=== PATIENT | male | born 1950 | race Caucasian/White ===

== ENCOUNTER → 2017-08-31 | Outpatient (CLI) | payer MEDICARE, OTHER ==
[~2017-08-31] VITALS: Ht 175.3 cm; Wt 127.3 kg
[~2017-08-31] MED LIST: PROPAFENONE HC225 M1 PO
[2017-08-31 13:28] VITALS: BP 159/106
== END ==
LOC: AMSURD 13:19
DX: I48.91 Unspecified atrial fibrillation (principal)

== ENCOUNTER → 2017-09-21 | Outpatient (CLI) | payer MEDICARE, OTHER ==
[~2017-09-21] VITALS: Ht 175.3 cm; Wt 127.3 kg
[~2017-09-21] MED LIST changes: +ELIQUIS5 MG PO; +TOPROL XL 25MG25 MG PO
[2017-09-21 14:59] VITALS: BP 140/102
== END ==
LOC: AMSURD 14:32
DX: I48.91 Unspecified atrial fibrillation (principal)

== ENCOUNTER → 2017-11-23 | Outpatient (CLI) | payer MEDICARE, OTHER ==
[~2017-11-23] VITALS: Ht 172.7 cm; Wt 127.3 kg
[2017-11-23 10:24] VITALS: BP 183/98
== END ==
LOC: AMSURD 10:04
DX: I48.91 Unspecified atrial fibrillation (principal)

== ENCOUNTER → 2018-12-04 | Outpatient (CLI) | payer MEDICARE, OTHER ==
[2017-11-23 10:24] VITALS: BP 183/98
[2018-12-04 15:18] LABS: HEMATOCRIT 43.5 % (42.0-52.0); HEMOGLOBIN 14.6 g/dL (13.5-18.0); MEAN PLATELET VOLUME 9.8 fl (7.4-10.4); RED BLOOD COUNT 5.3 M/mm3 (4.20-5.60); RED CELL DISTRIBUTION WIDTH 12.9 % (11.5-14.5); WHITE BLOOD COUNT 5.7 K/mm3 (4.8-10.8)
[2018-12-04 15:30] LABS: ALBUMIN 3.9 g/dL (3.5-5.0); CALCIUM 8.7 mg/dL (8.4-10.2); TOTAL BILIRUBIN 0.5 mg/dL (0.2-1.3)
[2018-12-04 15:46] LABS: PH-URINE 5.5 (5.0 - 8.0); URINE APPEARANCE CLEAR; URINE COLOR YELLOW
[2018-12-04 15:47] LABS: URINE BILIRUBIN NEGATIVE (NEGATIVE); URINE BLOOD NEGATIVE (NEGATIVE); URINE GLUCOSE NEGATIVE (NEGATIVE); URINE KETONE NEGATIVE (NEGATIVE); URINE LEUKOCYTE ESTERASE NEGATIVE (NEGATIVE); URINE NITRATE NEGATIVE (NEGATIVE); URINE PROTEIN(semi-quant) NEGATIVE (NEGATIVE); URINE UROBILINOGEN NORMAL (NORMAL); URINE WBC 0-1 /hpf (0-3)
== END ==
LOC: LAB 14:45
PROVIDERS: Physician Assistant
DX: L93.0 Discoid lupus erythematosus (principal)

== ENCOUNTER → 2018-12-05 | Outpatient (CLI) | payer MEDICARE, OTHER ==
[2017-11-23 10:24] VITALS: BP 183/98
== END ==
LOC: LAB 11:49
DX: L93.0 Discoid lupus erythematosus (principal)

== ENCOUNTER → 2018-12-30 | Outpatient (CLI) | payer MEDICARE, OTHER ==
[2017-11-23 10:24] VITALS: BP 183/98
== END ==
LOC: RAD 09:49
DX: M79.89 Other specified soft tissue disorders (principal)

== ENCOUNTER → 2020-01-27 | Outpatient (CLI) | payer MEDICARE, OTHER ==
[2017-11-23 10:24] VITALS: BP 183/98
[2020-01-27 13:34] LABS: ALBUMIN 4.1 g/dL (3.4-4.8)
[2020-01-27 13:35] LABS: CALCIUM 9.1 mg/dL (8.3-10.5)
[2020-01-27 13:36] LABS: TOTAL PROTEIN 7.1 g/dL (6.2-8.1)
[2020-01-27 13:38] LABS: TOTAL BILIRUBIN 0.5 mg/dL (0.2-1.2)
[2020-01-27 14:17] LABS: EOS # 0.1 (0.04-0.40); EOS % 0.7 % (0.0-4.0); HEMATOCRIT 45.6 % (42.0-52.0); LYMPH# 1.3 (1.50-4.00); MEAN CELL VOLUME 82 fl (78-100); MEAN CORPUSCULAR HEMOGLOBIN 27 pg (27-31); MEAN CORPUSCULAR HGB CONC 33 g/dL (33-37); MEAN PLATELET VOLUME 9.8 fl (7.4-10.4); MONO # 0.6 (0.20-0.80); NEU # 6.7 (1.40-6.50); PLATELET COUNT 233 K/mm3 (130-400); RED BLOOD COUNT 5.55 M/mm3 (4.20-5.60); RED CELL DISTRIBUTION WIDTH 13.1 % (11.5-14.5); WHITE BLOOD COUNT 8.6 K/mm3 (4.8-10.8)
== END ==
LOC: LAB 13:11
PROVIDERS: Physician Assistant
DX: L93.1 Subacute cutaneous lupus erythematosus (principal)

== ENCOUNTER → 2020-12-13 | Outpatient (CLI) | payer MEDICARE, OTHER ==
[2020-08-08 14:23] VITALS: BP 141/86
[~2020-12-13] MED LIST changes: +CEPHALEXIN500 M1 PO; +LOSARTAN POTASS50 M1 PO; +TOPROL XL 50MG50 MG PO
== END ==
LOC: AMSURD 10:01
DX: I48.92 Unspecified atrial flutter (principal)

== ENCOUNTER 2021-06-04 10:41 | Emergency (ER) | payer MEDICARE, OTHER ==
[~2021-06-04] VITALS: Ht 172.7 cm; Wt 130.2 kg
[~2021-06-04 10:41] MED LIST changes: -CEPHALEXIN500 M1 PO
[2021-06-04 11:28] LABS: BASO # 0.09 (0.02-0.10); EOS # 0.33 (0.04-0.40); EOS % 4.8 % (0.0-4.0); HEMATOCRIT 44.2 % (42.0-52.0); HEMOGLOBIN 14.3 g/dL (13.5-18.0); LYMPH# 1.57 (1.50-4.00); MEAN CELL VOLUME 84 fl (78-100); MEAN CORPUSCULAR HEMOGLOBIN 27 pg (27-31); MEAN CORPUSCULAR HGB CONC 32 g/dL (33-37); MEAN PLATELET VOLUME 9.2 fl (7.4-10.4); MONO # 0.71 (0.20-0.80); PLATELET COUNT 220 K/mm3 (130-400); RED BLOOD COUNT 5.29 M/mm3 (4.20-5.60); RED CELL DISTRIBUTION WIDTH 13.6 % (11.5-14.5); WHITE BLOOD COUNT 6.8 K/mm3 (4.8-10.8)
[2021-06-04 11:29] LABS: POTASSIUM 3.9 mmol/L (3.5-5.1)
[2021-06-04 11:30] LABS: ALBUMIN 3.6 g/dL (3.4-4.8)
[2021-06-04 11:31] LABS: CALCIUM 9.5 mg/dL (8.3-10.5)
[2021-06-04 11:32] LABS: TOTAL PROTEIN 6.6 g/dL (6.2-8.1)
[2021-06-04 11:34] LABS: TOTAL BILIRUBIN 0.9 mg/dL (0.2-1.2)
[2021-06-04 11:45] LABS: D-DIMER 0.97 mg/L FEU (0.15-0.50)
[2021-06-04] MEDS ORDERED: CEPHALEXIN500 M1 PO (12:33)
[2021-06-04 12:48] VITALS: BP 148/92
== END 2021-06-04 12:48 | disposition home or self-care (01) ==
LOC: ED 10:41
PROVIDERS: Family Medicine
DX: U07.1 COVID-19 (principal); L03.115 Cellulitis of right lower limb; I48.91 Unspecified atrial fibrillation; E86.9 Volume depletion, unspecified; I10 Essential (primary) hypertension; E66.01 Morbid (severe) obesity due to excess calories; Z68.41 Body mass index [BMI] 40.0-44.9, adult; Z79.01 Long term (current) use of anticoagulants; Z79.899 Other long term (current) drug therapy

== ENCOUNTER → 2021-06-06 | Outpatient (CLI) | payer MEDICARE, OTHER ==
[~2021-06-06] MED LIST changes: +CEPHALEXIN500 M1 PO
== END ==
LOC: RAD 12:44
DX: S89.91XA Unspecified injury of right lower leg, initial encounter (principal)

== ENCOUNTER 2021-11-26 12:21 | Emergency (ER) | payer MEDICARE, OTHER ==
[2021-11-26 13:10] LABS: BASO # 0.09 K/mm3 (0.02-0.10); EOS # 0.17 K/mm3 (0.04-0.40); EOS % 1.6 % (0.0-4.0); HEMATOCRIT 45.5 % (42.0-52.0); HEMOGLOBIN 14.9 g/dL (13.5-18.0); LYMPH# 1.35 K/mm3 (1.50-4.00); MEAN CELL VOLUME 81 fl (78-100); MEAN CORPUSCULAR HEMOGLOBIN 26 pg (27-31); MEAN CORPUSCULAR HGB CONC 33 g/dL (33-37); MEAN PLATELET VOLUME 9.1 fl (7.4-10.4); MONO # 0.89 K/mm3 (0.20-0.80); NEU # 7.79 K/mm3 (1.40-6.50); PLATELET COUNT 228 K/mm3 (130-400); RED BLOOD COUNT 5.64 M/mm3 (4.20-5.60); RED CELL DISTRIBUTION WIDTH 13.5 % (11.5-14.5); WHITE BLOOD COUNT 10.3 K/mm3 (4.8-10.8)
[2021-11-26] MEDS ORDERED: CEPHALEXIN500 M1 PO (14:05)
[2021-11-26 14:13] VITALS: BP 155/90
== END 2021-11-26 14:13 | disposition home or self-care (01) ==
LOC: ED 12:21
PROVIDERS: Family Medicine
DX: J31.0 Chronic rhinitis (principal); I48.91 Unspecified atrial fibrillation; M32.9 Systemic lupus erythematosus, unspecified; L56.2 Photocontact dermatitis [berloque dermatitis]; Z79.01 Long term (current) use of anticoagulants

== ENCOUNTER → 2022-01-03 | Outpatient (CLI) | payer MEDICARE, OTHER | LOC: RAD 12:46 | DX: R09.89 Other specified symptoms and signs involving the circulatory and respiratory systems (principal); M54.2 Cervicalgia; I10 Essential (primary) hypertension ==

== ENCOUNTER 2024-06-10 09:20 | Emergency (ER) | payer MEDICARE, OTHER ==
[~2024-06-10] VITALS: Ht 172.7 cm; Wt 138.6 kg
[2024-06-10] MEDS ORDERED: Glucagon 1 MG VIAL IV ONE (10:15)
[2024-06-10 11:31] LABS: BASO # 0.05 K/mm3 (0.02-0.10); EOS # 0.21 K/mm3 (0.04-0.40); EOS % 2.1 % (0.0-4.0); HEMATOCRIT 46.9 % (42.0-52.0); HEMOGLOBIN 15.3 g/dL (13.5-18.0); LYMPH# 1.57 K/mm3 (1.50-4.00); MEAN CELL VOLUME 79 fl (78-100); MEAN CORPUSCULAR HEMOGLOBIN 26 pg (27-31); MEAN CORPUSCULAR HGB CONC 33 g/dL (33-37); MEAN PLATELET VOLUME 9.3 fl (7.4-10.4); MONO # 0.98 K/mm3 (0.20-0.80); PLATELET COUNT 235 K/mm3 (130-400); RED BLOOD COUNT 5.91 M/mm3 (4.20-5.60); RED CELL DISTRIBUTION WIDTH 14.6 % (11.5-14.5); WHITE BLOOD COUNT 10.2 K/mm3 (4.8-10.8)
[2024-06-10 11:34] LABS: CALCIUM 9.4 mg/dL (8.3-10.5)
[2024-06-10 11:35] LABS: TOTAL PROTEIN 7.6 g/dL (6.2-8.1)
[2024-06-10 11:37] LABS: TOTAL BILIRUBIN 0.9 mg/dL (0.2-1.2)
[2024-06-10] MEDS ORDERED: Iohexol 300 - 100 ML VIAL IV ONE (11:49)
[2024-06-10] MEDS ORDERED: CLEOCIN HCL300 MG PO (14:44)
[2024-06-10] MEDS ORDERED: Clindamycin 150 MG CAP PO ONE (14:45)
[2024-06-10] MEDS ORDERED: Amoxicillin/Clavulanate K+ 875/125 MG TAB PO ONE (14:45)
[2024-06-10] MEDS ORDERED: dexAMETHasone 4 MG/ML VIAL IV ONE (14:45)
[2024-06-10 15:12] VITALS: BP 197/118
== END 2024-06-10 15:14 | disposition home or self-care (01) ==
LOC: ED 09:20
PROVIDERS: Physician Assistant
DX: J36 Peritonsillar abscess (principal); I10 Essential (primary) hypertension; Z88.1 Allergy status to other antibiotic agents
CPT/HCPCS: J1100; J1610; Q9967